=== PATIENT | male | born 1985 | race African-American/Black ===

== ENCOUNTER 2025-01-13 10:08 | Emergency (ER) | payer SELFPAY ==
[2025-01-13] MEDS ORDERED: Ibuprofen 200 MG TAB ONE (10:47)
== END 2025-01-13 12:40 | disposition home or self-care (01) ==
LOC: CSHERS 10:08
DX: S63.502A Unspecified sprain of left wrist, initial encounter (principal); X58.XXXA Exposure to other specified factors, initial encounter; Y93.89 Activity, other specified
CPT/HCPCS: 99283